=== PATIENT | male | born 1990 | race African-American/Black ===

== ENCOUNTER 2017-01-10 16:25 | Emergency (ER) | payer SELFPAY ==
[~2017-01-10] VITALS: Ht 172.7 cm; Wt 90.7 kg
[~2017-01-10 16:25] MED LIST: AMOXICILLIN500 MG ORAL; CYCLOBENZAPRINE10 MG ORAL; FIORICET1 EA ORAL; IBUPROFEN600 MG ORAL; NKM; NORCO 5-325 TA1 EACH ORAL
[2017-01-10] MEDS ORDERED: KENALOG 0.025%15 GM APPLIC (17:00)
[2017-01-10] MEDS ORDERED: CEPHALEXIN500 MG ORAL (17:00)
--- NOTE | 2017-01-10 17:01 | Emergency Room Report ---
History of Present Illness General Chief Complaint: Skin Rash/Abscess Source: Patient Present Illness HPI 26 y/o male c/o possible spider bite on right upper arm x 2 days. Assoc sxs include burning, itching and tenderness with spreading wound on right medial arm. States he doesn't know what happened and not even sure if it was a spider. No relieving factors and states he just wants to keep scratching at it but doesn 't. No other modifying factors and denies any other physical complaints. Has allergies to peanuts but no other allergies to food, medication, environmental or latex. Denies any current n/v/f/c/d, abd pain, back pain, neck pain, photophobia, phonophobia, CP, SOB or headache. Allergies: Coded Allergies: No Known Allergies (Unverified , 07/03/14) Patient History Past Medical History: see triage record Past Surgical History: none Pertinent Family History: none Immunizations: UTD Reviewed Nursing Documentation: PMH: Agreed, PSxH: Agreed Nursing Documentation-PMH Past Medical History: No Stated History Review of Systems All Other Systems: negative except mentioned in HPI Physical Exam Vital Signs Date Time Temp Pulse Resp B/P Pulse Ox O2 Delivery O2 Flow Rate FiO2 01/10/17 16:46 98.2 73 18 114/70 98 Room Air Sp02 EP Interpretation: reviewed, normal General Appearance: no apparent distress, alert, GCS 15, non-toxic Head: normocephalic, atraumatic Eyes: bilateral eye normal inspection ENT: normal ENT inspection Respiratory: chest non-tender, lungs clear, normal breath sounds, speaking full sentences Cardiovascular #1: normal peripheral pulses, regular rate, rhythm, no edema Musculoskeletal: back normal, gait/station normal, normal range of motion, non- tender Neurologic: alert, oriented x3, responsive, motor strength/tone normal, sensory intact, speech normal Psychiatric: judgement/insight normal, memory normal, mood/affect normal, no suicidal/homicidal ideation Skin: warm/dry, other - hyperpigmented ulcerated wound with central eschar on right proximal medial bicept region approx 3.5cm in diameter. TTP w/o excessive heat. Skin appears to be pealing. No inudration or fluctulence. Lymphatic: no adenopathy Medical Decision Making PA Attestation Dr. Dickens my supervising physician with whom patient management has been discussed with. Diagnostic Impression: Primary Impression: Cellulitis of right upper arm ER Course Pt. presents to the ED c/o "spider bite" Ddx considered but are not limited to dermatitis, insect sting, viral exanthem, herpez zoster, cellulitis, abscess Vital signs: are WNL, pt. is afebrile H&PE are most consistent with infected insect bite ORDERS: Wound Culture ED INTERVENTIONS: none required at this time. DISCHARGE: At this time pt. is stable for d/c to home. Will provide printed patient care instructions, and any necessary prescriptions. Care plan and follow up instructions have been discussed with the patient prior to discharge. Chest X-Ray Diagnostic Results Chest X-Ray Ordered: No Last Vital Signs Date Time Temp Pulse Resp B/P Pulse Ox O2 Delivery O2 Flow Rate FiO2 01/10/17 16:46 98.2 73 18 114/70 98 Room Air Status: unchanged Disposition: HOME, SELF-CARE Condition: Stable Scripts Triamcinolone Acet (Triamcinolone Acetonide) 15 Gm Cream..g. 0.1 % APPLIC BID for 14 Days, #30 GM Prov: DEACON CARMICHAEL 01/10/17 Cephalexin* (KEFLEX*) 500 Mg Capsule 500 MG ORAL EVERY 12 HOURS, #14 CAP 0 Refills Prov: DEACON CARMICHAEL 01/10/17 Patient Instructions: Rash Additional Instructions: Take medication as directed. Patient instructed to take ibuprofen and tylenol as needed for pain. Patient to return for wound check in 3-5 days urgent care or with PCP. Patient is to keep the infected area clean and dry. Patient instructed to not put any antibiotic ointments or creams on the area. Patient should come back sooner if their symptoms do not get better within 3 days of starting treatment or if the red area gets bigger, more swollen, or more painful. DEACON CARMICHAEL Jan 10, 2017 17:01
[2017-01-10 17:21] VITALS: BP 117/72
[2017-01-10 17:22] VITALS: BP 114/70
== END 2017-01-10 17:23 | disposition home or self-care (01) ==
LOC: EMR 16:50
DX: L03.113 Cellulitis of right upper limb (principal)
CPT/HCPCS: 99284

== ENCOUNTER 2018-09-29 17:40 | Emergency (ER) | payer SELFPAY ==
[~2018-09-29] VITALS: Ht 172.7 cm; Wt 95.3 kg
[~2018-09-29 17:40] MED LIST changes: +CEPHALEXIN500 MG ORAL; +KENALOG 0.025%15 GM APPLIC
--- NOTE | 2018-09-29 18:00 | NUR ---
ER DISCHARGE NOTE: Patient is cleared to be discharged per ERMD, pt is aox4, on room air, with stable vital signs. pt was given dc and prescription instructions, pt was able to verbalize understanding, pt is able to ambulate with steady gait. pt took all belongings.
[2018-09-29] MEDS ORDERED: COLACE100 MG ORAL (18:30)
[2018-09-29] MEDS ORDERED: ANUSOL-HC25 MG RECTAL (18:30)
--- NOTE | 2018-09-29 18:30 | Emergency Room Report ---
History of Present Illness General Chief Complaint: Skin Rash/Abscess Source: Patient Present Illness HPI 28-year-old male patient presents the ER complaining of bumps near his rectum for the past week. Reports bumps are painful. Denies blood in stool. Denies constipation or diarrhea. Reports hesitation with passing stool during this time. Denies blood in toilet paper. Denies history of hemorrhoids. Denies fever, chest pain, shortness of breath, abdominal pain. Denies vomiting. Denies other aggravating or relieving factors. Denies dysuria, hematuria, abdominal pain. Reports able to pass flatus. Allergies: Coded Allergies: No Known Allergies (Unverified , 07/03/14) Patient History Past Medical History: see triage record Reviewed Nursing Documentation: PMH: Agreed; PSxH: Agreed Nursing Documentation-PMH Past Medical History: No Stated History Review of Systems All Other Systems: negative except mentioned in HPI Physical Exam Vital Signs Date Time Temp Pulse Resp B/P (MAP) Pulse Ox O2 Delivery O2 Flow Rate FiO2 09/29/18 17:45 98.2 101 20 136/75 99 Room Air Sp02 EP Interpretation: reviewed, normal General Appearance: well appearing, no apparent distress, alert, GCS 15, non- toxic Head: normocephalic, atraumatic Eyes: bilateral eye normal inspection, bilateral eye PERRL ENT: hearing grossly normal, normal pharynx, no angioedema, normal voice, uvula midline, moist mucus membranes Neck: full range of motion Respiratory: lungs clear, normal breath sounds, no rhonchi, no respiratory distress, no accessory muscle use, no wheezing, speaking full sentences Cardiovascular #1: regular rate, rhythm, no edema Rectal: hemorrhoids - Approximately 1 cm external, tender to palpation, no blue or red discoloration, no thrombosed hemorrhoid, other - No fissure Genitourinary: no CVA tenderness Musculoskeletal: back normal, digits/nails normal, gait/station normal, normal range of motion, non-tender Psychiatric: mood/affect normal Skin: no rash Medical Decision Making PA Attestation Dr. Jimenez is my supervising Physician whom patient management has been discussed with. Diagnostic Impression: Primary Impression: Hemorrhoid ER Course Pt. presents to the ED c/o bump on anus. Ddx considered but are not limited to constipation, anal tag, anal fissure, hemorrhoids. Denies abdominal, denies blood in stool, does not require CT or labs. Vital signs: are WNL, pt. is afebrile No orders required at this time. No signs of anemia, no pallor, patient reports no light headedness. ER COURSE: Palpable hemorrhoids. No anal fissure, no skin tags. Will treat for hemorrhoids with Anusol, followup with primary care and discuss referral to GI and surgery as needed. Provide Colace for constipation. Instructed patient to drink plenty of fluids. ER precautions given. DISCHARGE: Rx provided for Anusol Rx provided for Colace At this time pt is stable for d/c to home. Patient is resting comfortably, in no acute distress, nontoxic appearing, talking without difficulty. Patient to take medications as instructed Will provide with patient care instructions and any necessary prescriptions. Care plan and follow-up instructions provided. Patient instructed to follow-up with primary care provider in 3 - 5 days. Patient questions asked and answered. Patient reports understanding and agreement to treatment plan. ER precautions given. Patient instructed to return to ER immediately for any new or worsening of symptoms including but not limited to increasing SOB, persistent fever. - Please note that this Emergency Department Report was dictated using [employer]™ [employer] bleacher technology software, occasionally this can lead to erroneous entry secondary to interpretation by the dictation equipment. Last Vital Signs Date Time Temp Pulse Resp B/P (MAP) Pulse Ox O2 Delivery O2 Flow Rate FiO2 09/29/18 17:45 98.2 101 20 136/75 99 Room Air Disposition: HOME, SELF-CARE Condition: Stable Scripts Docusate Sodium* (COLACE*) 100 Mg Capsule 100 MG ORAL THREE TIMES A DAY, #30 CAP Prov: rBian Montalvo 09/29/18 Hydrocortisone Acetate* (ANUSOL-HC*) 25 Mg Supp.rect 1 SUPP RECTAL TWICE A DAY for 7 Days, #14 SUPP Prov: Brian Montalvo 09/29/18 Patient Instructions: Hemorrhoids, [id number] Additional Instructions: Followup with primary care provider in 3 -5 days. Discuss referral to surgeon for removal. Drink plenty of fluids. Take Tylenol for pain. Take medications as directed. Patient questions asked and answered. ER precautions given, patient instructed to return to ER immediately for any new or worsening of symptoms. Brian Montalvo Sep 29, 2018 18:30
[2018-09-29 19:46] VITALS: BP 136/75
[2018-09-29 19:48] VITALS: BP 136/75
== END 2018-09-29 19:48 | disposition home or self-care (01) ==
LOC: EMR 18:20
DX: K64.4 Residual hemorrhoidal skin tags (principal)
CPT/HCPCS: 99282

== ENCOUNTER 2019-07-13 17:38 | Emergency (ER) | payer MEDICAID ==
[~2019-07-13] VITALS: Ht 172.7 cm; Wt 86.2 kg
[~2019-07-13 17:38] MED LIST changes: +ANUSOL-HC25 MG RECTAL; +COLACE100 MG ORAL
[2019-07-13 18:00] VITALS: BP 125/78
[2019-07-13 18:48] LABS: APPEARANCE,URINE SLIGHTLY CLOUDY; BILIRUBIN, URINE NEGATIVE (NEGATIVE); COLOR,URINE YELLOW; GLUCOSE, URINE (UA) NEGATIVE (NEGATIVE); KETONES,URINE NEGATIVE (NEGATIVE); LEUKOCYTE ESTERASE ,URINE 2+ (NEGATIVE); NITRITE,URINE NEGATIVE (NEGATIVE); PH,URINE 6.5 (4.5-8.0); PROTEIN,URINE 1+ (NEGATIVE); UROBILINOGEN,URINE 1 MG/DL (0.0-1.0)
[2019-07-13] MEDS ORDERED: Cephalexin 500mg cap ORAL ONE (19:15)
[2019-07-13] MEDS ORDERED: CEPHALEXIN500 MG ORAL (19:15)
[2019-07-13] MEDS ORDERED: PHENAZOPYRIDIN200 MG ORAL (19:15)
[2019-07-13 19:23] VITALS: BP 133/70
--- NOTE | 2019-07-13 19:55 | Emergency Room Report ---
History of Present Illness General Chief Complaint: Pain Source: Patient Present Illness HPI 29-year-old male presents with 1 episode of light pink hematuria today. He also reports about 3 days of dysuria. He reports low back pain rated 5/10 which is chronic for him. Denies incontinence, saddle anesthesia. Denies testicular pain or swelling, or penile rash or discharge. No abdominal pain, fever, vomiting, diarrhea, constipation. Patient has no history of STDs and has no concern for STDs currently. Allergies: Coded Allergies: No Known Allergies (Unverified , 07/03/14) Patient History Past Medical History: see triage record Past Surgical History: none Pertinent Family History: none Reviewed Nursing Documentation: PMH: Agreed; PSxH: Agreed Nursing Documentation-PMH Past Medical History: No Stated History Review of Systems All Other Systems: negative except mentioned in HPI Physical Exam Vital Signs Date Time Temp Pulse Resp B/P (MAP) Pulse Ox O2 Delivery O2 Flow Rate FiO2 07/13/19 17:51 98.2 82 16 125/78 (94) 96 Room Air Sp02 EP Interpretation: reviewed, normal General Appearance: no apparent distress, alert, GCS 15, non-toxic Head: normocephalic, atraumatic Eyes: bilateral eye normal inspection, bilateral eye PERRL ENT: normal voice Respiratory: lungs clear, normal breath sounds, speaking full sentences Cardiovascular #1: regular rate, rhythm Gastrointestinal: normal bowel sounds, non tender, soft, non-distended, no guarding, no rebound Rectal: deferred Genitourinary: normal inspection, no CVA tenderness, no vertebral tenderness Musculoskeletal: back normal, normal range of motion, gait/station normal, non- tender Neurologic: alert, motor strength/tone normal, oriented x3, sensory intact, responsive, speech normal Psychiatric: judgement/insight normal, memory normal, mood/affect normal, no suicidal/homicidal ideation Lymphatic: no adenopathy Medical Decision Making PA Attestation Dr. Mcdaniel is my supervising physician whom patient management and care has been discussed with. Diagnostic Impression: Primary Impression: UTI (urinary tract infection) ER Course Pt. presents to the ED c/o dysuria and hematuria Ddx considered but are not limited to UTI, pyelonephritis, nephrolithiasis Vital signs: are WNL, pt. is afebrile H&PE are most consistent with UTI ORDERS: UA shows evidence of UTI ED INTERVENTIONS: Given first dose of p.o. 500 mg Keflex. DISCHARGE: At this time pt. is stable for d/c to home. Will provide printed patient care instructions, and prescription for Keflex and Pyridium. Care plan and follow up instructions have been discussed with the patient prior to discharge. Last Vital Signs Date Time Temp Pulse Resp B/P (MAP) Pulse Ox O2 Delivery O2 Flow Rate FiO2 07/13/19 19:23 97.9 84 15 133/70 99 Room Air Disposition: HOME, SELF-CARE Condition: Stable Scripts Phenazopyridine Hcl* (PYRIDIUM*) 200 Mg Tablet 200 MG ORAL THREE TIMES A DAY for 2 Days, #6 TAB 0 Refills Prov: Wendy Urban. P.Edward 07/13/19 Cephalexin* (KEFLEX*) 500 Mg Capsule 500 MG ORAL EVERY 6 HOURS for 7 Days, #28 CAP Prov: Wendy Urban. P.A. 07/13/19 Patient Instructions: Urinary Tract Infection, [id number] Additional Instructions: Take antibiotics as directed. Drink plenty of water. Return for fever or worsening symptoms. Wendy Urban PHarmony Jul 13, 2019 19:55
== END 2019-07-13 19:25 | disposition home or self-care (01) ==
LOC: EMR 19:14
DX: N39.0 Urinary tract infection, site not specified (principal); M54.5 Low back pain
CPT/HCPCS: 81003; 87086; Z7502; 99283

== ENCOUNTER 2020-01-12 07:58 | Emergency (ER) | payer MEDICAID ==
[~2020-01-12] VITALS: Ht 172.7 cm; Wt 85.7 kg
[~2020-01-12 07:58] MED LIST changes: +PHENAZOPYRIDIN200 MG ORAL
[2020-01-12 08:20] VITALS: BP 130/72
[2020-01-12] MEDS ORDERED: Lidocaine 1% MPF 10mg/ml 5ml INJ ONE (09:00)
[2020-01-12] MEDS ORDERED: Azithromycin 250mg tab ORAL ONE (09:00)
--- NOTE | 2020-01-12 09:05 | Emergency Room Report ---
History of Present Illness General Chief Complaint: Male Urogenital Problems Source: Patient Present Illness HPI Patient presents with reports of burning with urination Reports that he has had this sensation for the past 2 days Just at the end of his stream of urination he feels a burning sensation Denies any fevers or chills denies any testicular pain Please note that the triage report states testicular pain patient denies any pain He reports that last time he presented he had discomfort and it was swelling However not with this visit denies any recent trauma denies any back or flank pain Patient reports that he has not been sexually active over the past 1 month however he has been sexually active prior to this Allergies: Coded Allergies: NAPROXEN (Verified Allergy, Unknown, 01/12/20) COVID-19 Screening Contact w/high risk pt: No Recent Travel to affected area: No Experienced COVID-19 symptoms?: No COVID-19 Testing performed HAIR OR BEAUTY SALON MANAGER: No Patient History Past Medical History: see triage record Reviewed Nursing Documentation: PMH: Agreed; PSxH: Agreed Nursing Documentation-PMH Past Medical History: No Stated History Review of Systems All Other Systems: negative except mentioned in HPI Physical Exam Vital Signs Date Time Temp Pulse Resp B/P (MAP) Pulse Ox O2 Delivery O2 Flow Rate FiO2 01/12/20 08:02 98.1 55 16 124/69 (87) 100 Room Air Sp02 EP Interpretation: reviewed, normal General Appearance: well appearing, no apparent distress Head: normocephalic, atraumatic Eyes: bilateral eye PERRL, bilateral eye EOMI ENT: hearing grossly normal, normal pharynx, TMs + canals normal, uvula midline Neck: full range of motion, supple, no meningismus, no bony tend Respiratory: lungs clear, normal breath sounds, no rhonchi, no respiratory distress, no retraction, no accessory muscle use Cardiovascular #1: normal peripheral pulses, regular rate, rhythm, no edema, no gallop, no JVD, no murmur Gastrointestinal: normal bowel sounds, non tender, soft, no mass, no organomegaly, non-distended, no guarding, no hernia, no pulsatile mass, no rebound Genitourinary: no CVA tenderness, other - Patient denies any testicular pain denies any swelling or discomfort he reports being circumcised other exam was deferred Musculoskeletal: normal inspection Neurologic: motor strength/tone normal, vascular ultrasound technician III-XII nml as tested, oriented x3 , sensory intact, responsive Psychiatric: mood/affect normal Skin: no rash Lymphatic: normal inspection, no adenopathy Medical Decision Making Diagnostic Impression: Primary Impression: Urethritis ER Course Patient's exam is consistent with urethritis Patient is treated symptomatically other differential such as UTI , STD entertained Patient reports that he does get testing frequently and does have a clinic that he goes to Given the recent symptoms however he is treated symptomatically Last Vital Signs Date Time Temp Pulse Resp B/P (MAP) Pulse Ox O2 Delivery O2 Flow Rate FiO2 01/12/20 08:20 98.1 88 19 130/72 99 Room Air Status: improved Disposition: HOME, SELF-CARE Condition: Improved Referrals: [facility],REFERRING (PCP) Additional Instructions: Patient is provided with the discharge instructions notified to follow up with primary doctor in the next 2-3 days otherwise return to the er with any worsening symptoms. Please note that this report is being documented using [employer] technology. This can lead to erroneous entry secondary to incorrect interpretation by the dictating instrument. Ksenia Mcdaniel DO Jan 12, 2020 09:05
[2020-01-12] MEDS ORDERED: DOXYCYCLINE MO100 MG ORAL (09:15)
[2020-01-12] MEDS ORDERED: PHENAZOPYRIDIN100 MG ORAL (09:40)
[2020-01-12 09:53] VITALS: BP 127/71
== END 2020-01-12 09:54 | disposition home or self-care (01) ==
LOC: EMR 08:48
DX: N34.2 Other urethritis (principal); Z88.4 Allergy status to anesthetic agent
CPT/HCPCS: 96372; 96374; J0696; Q0144; Z7502; 99284